=== PATIENT | male | born 1990 | race Caucasian/White ===

== ENCOUNTER 2024-11-29 20:33 | Emergency (ER) | payer SELFPAY ==
[2024-11-29] MEDS ORDERED: ONDANSETRON 4 MG/2 ML VIAL ONE (21:41)
[2024-11-29] MEDS ORDERED: KETOROLAC 30 MG/ML INJ ONE (21:42)
[2024-11-29] MEDS ORDERED: MORPHINE 4 MG/ML SYR ONE (21:42)
[2024-11-29] MEDS ORDERED: FAMOTIDINE 20 MG/2 ML VIAL IV ONE (21:42)
[2024-11-29] MEDS ORDERED: NA CHLORIDE 0.9% 1,000 ML ONE (21:43)
--- NOTE | 2024-11-29 21:55 | RAD REPORT ---
EXAMINATION: ONE VIEW CHEST XR CLINICAL INDICATION: Male, 34 years old.,CHEST PAIN TECHNIQUE: Frontal chest projection is submitted. Examination is limited by patient positioning and t echnique. COMPARISON: No prior exam. FINDINGS: The lungs are well inflated and clear. No pneumothorax or sizable effusion. The heart is normal in s ize. Mediastinal contours are unremarkable. IMPRESSION: No acute intrathoracic abnormalities.
[2024-11-29 22:25] LABS: ALT/SGPT 30 U/L (16-61); Albumin 3.7 g/dL (3.4-5.0); Albumin/Globulin Ratio 1.1 (1.1-1.8); Alkaline Phosphatase 63 U/L (45-117); Anion Gap 6.9 mEq/L (5.0-15.0); BUN Blood Urea Nitrogen 14 mg/dL (7-18); Bicarbonate 30 mEq/L (21-32); Bilirubin Total 0.4 mg/dL (0.2-1.0); Globulin 3.4 g/dL (2.3-3.5); Glomerular Filtration Rate 132 ml/min (=/>90); Glucose Level 110 mg/dL (74-106); NT PRO-BNP 13 pg/mL (<125); Protein, Total 7.1 g/dL (6.4-8.2); Sodium Level 139 mEq/L (136-145); Troponin High Sensitivity 3.7 pg/mL (<58.9)
[2024-11-29 22:26] LABS: AST/SGOT 22 U/L (15-37); Bilirubin Direct < 0.2 mg/dL (0-0.2); Bilirubin Indirect, Calculated 0.2 mg/dL (0.2-0.8); Magnesium 2.2 mg/dL (1.6-2.4); Potassium 3.9 mEq/L (3.5-5.1)
[2024-11-29 22:30] LABS: Absolute Basophils 0.1 K/uL (0-0.5); Absolute Eosinophils 0.1 K/uL (0-0.5); Absolute Lymphocytes (CBC) 2.5 K/uL (0.7-4.9); Absolute Monocytes 0.6 K/uL (0.1-1.3); Absolute Neutrophil 4.4 K/uL (1.8-8.0); Basophils % 0.8 % (0-1.3); Eosinophils % 1.8 % (0-4.4); Hematocrit 41.6 % (39.6-49.0); Hemoglobin 14.1 g/dL (13.6-17.9); MCH 30.1 pg (27.0-35.0); MCV 88.3 fL (80-100); MPV 8.1 fL (7.6-11.3); Monocytes % 7.9 % (3.3-12.3); Neutrophils % 56.5 % (41.7-73.7); Nucleated Red Blood Cells % 0.2 % (0-0); PT Prothrombin Time 10.5 SECONDS (10-13.0); Platelets 270 thou/uL (152-406); Protime INR 0.92; Red Cell Distribution Width 13.6 % (12.1-15.2)
[2024-11-30] MEDS ORDERED: PROMETHAZINE 25 MG TABLET ONE (00:51)
[2024-11-30] MEDS ORDERED: BENZONATATE 100 MG CAP PO ONE (00:52)
[2024-11-30] MEDS ORDERED: GUAIFENESIN/DM 5 ML UCUP ONE (00:52)
--- NOTE | 2024-11-30 00:57 | EDPHYS ---
Physician Documentation [facility] Name: Oni Tobin III Age: 34 yrs Sex: Male : 1990 Arrival Date: 11/29/2024 Time: 20:33 Bed 19 Private MD: ED Physician Anuj Flowers HPI: 11/29 20:37 This 34 yrs old Male presents to ER via Unassigned with complaints of Chest sp4 Pain, Shortness Of Breath. 21:27 34-year-old male presents with persistent cough and chest pain. Patient reports 3 sp4 nights ago he vomited in his sleep and since then developed left-sided pressure type chest pain which is 9 out of 10 on a scale associated with persistent cough feeling of fluid in the chest. Patient reports he has history of gastric sleeve surgery in 2021 he also has history of GERD he takes omeprazole 40 mg p.o. daily. History of prediabetes, allergy to penicillin, erythromycin, metformin, amoxicillin, sulfa drugs, doxycycline, and Chantix. Historical: - Allergies: 20:43 PENICILLINS; bm8 20:43 Amoxicillin; bm8 20:43 erythromycin; bm8 20:43 metformin; bm8 20:43 Sulfa (Sulfonamide Antibiotics); bm8 20:43 Doxycycline; bm8 20:43 Chantix; bm8 - Home Meds: 20:43 None [Active]; bm8 - PMHx: 20:43 gastric sleeve; bm8 - Immunization history:: Adult Immunizations up to date. - Infectious Disease History:: Denies. - Social history:: Smoking status: Patient denies any tobacco usage or history of. - Family history:: not pertinent. ROS: 21:36 Constitutional: Negative for fever, chills, and weight loss, sp4 21:36 All other systems are negative, Exam: 21:36 Constitutional: This is a well developed, well nourished patient who is awake, alert, sp4 and in no acute distress. Head/Face: Normocephalic, atraumatic. Eyes: Pupils equal round and reactive to light, extra-ocular motions intact. Lids and lashes normal. Conjunctiva and sclera are not injected. Cornea within normal limits. Periorbital areas with no swelling, redness, or edema. ENT: Nares patent. No nasal discharge, no septal abnormalities noted. Tympanic membranes are normal and external auditory canals are clear. Oropharynx with no redness, swelling, or masses, exudates, or evidence of obstruction, uvula midline. Mucous membranes moist. Neck: Trachea midline, no thyromegaly or masses palpated, and no cervical lymphadenopathy. Supple, full range of motion without nuchal rigidity, or vertebral point tenderness. Chest/axilla: Normal chest wall appearance and motion. Nontender with no deformity. No lesions are appreciated. Cardiovascular: Regular rate and rhythm with a normal S1 and S2. No gallops, murmurs, or rubs. Normal PMI, no JVD. No pulse deficits. Respiratory: Lungs have equal breath sounds bilaterally, clear to auscultation and percussion. No rales, rhonchi or wheezes noted. No increased work of breathing, no retractions or nasal flaring. Abdomen/GI: Soft, with normal bowel sounds. No distension or tympany. No guarding or rebound. No evidence of tenderness throughout. Back: No spinal tenderness. No costovertebral tenderness. Skin: Warm, dry with normal turgor. Normal color with no rashes, no lesions, and no evidence of cellulitis. MS/ Extremity: Pulses equal, no cyanosis. Neurovascular intact. Full, normal range of motion. Neuro: Awake and alert, GCS 15, oriented to person, place, time, and situation. Cranial nerves II-XII grossly intact. Motor strength 5/5 in all extremities. Sensory grossly intact. Psych: Awake, alert, with orientation to person, place and time. Behavior, mood, and affect are within normal limits 21:36 ECG was reviewed by the Attending Physician. EKG 2130 normal sinus rhythm rate 74 normal EKG Vital Signs: 20:42 BP 144 / 93; Pulse 80; Resp 18; Temp 98.6; Pulse Ox 100% ; Weight 90.72 kg; Height 5 bm8 ft. 8 in. ; Pain 9/10; 21:56 BP 143 / 69; Pulse 92; Resp 20; Pulse Ox 100% on R/A; kj2 23:00 BP 142 / 68; Pulse 88; Resp 20; Pulse Ox 100% on R/A; kj2 23:41 BP 138 / 70; Pulse 82; Resp 18; Pulse Ox 100% on R/A; kj2 04/10 01:09 BP 130 / 87; Pulse 74; Resp 18; Temp 98.6; Pulse Ox 98% ; Pain 0/10; bm8 11/29 20:42 Body Mass Index 30.41 (90.72 kg, 172.72 cm) bm8 11/29 20:42 Pain Scale: Adult bm8 11/30 01:09 Pain Scale: Adult bm8 [place] Coma Score: 11/29 21:36 Eye Response: spontaneous(4). Motor Response: obeys commands(6). Verbal Response: sp4 oriented(5). Total: 15. 11/30 00:17 Eye Response: spontaneous(4). Motor Response: obeys commands(6). Verbal Response: bm8 oriented(5). Total: 15. 01:09 Eye Response: spontaneous(4). Motor Response: obeys commands(6). Verbal Response: bm8 oriented(5). Total: 15. MDM: 11/29 20:38 Medical Screening Exam initiated sp4 11/30 00:17 ED course: CLINICAL HISTORY: Eval for aspiration pneumonia. COMPARISON: None. sp4 TECHNIQUE: CT CHEST WITH IV CONTRAST on 11/29/2024 9:23 PM CDT. MIPS reconstructions were generated. This exam was performed according to our departmental dose-optimization program, which includes automated exposure control, adjustment of the mA and/or kV according to patient size and/or use of iterative reconstruction technique. MIP images were generated. FINDINGS: Thoracic aorta is normal in course and caliber without aneurysm or dissection. Pulmonary arteries are adequately opacified without acute or chronic filling defects. The heart is normal in size. There is no pericardial effusion. Intrathoracic lymph nodes are not enlarged. Bilateral gynecomastia is present. There is no pleural effusion, pleural thickening or pneumothorax. Central airways are patent. Lungs are clear with no consolidation, mass or interstitial lung disease. There are no acute abnormalities within the limited images of the upper abdomen. There are no acute osseous findings. No suspicious bony lesions. IMPRESSION: No aortic dissection or aneurysm. No pulmonary embolus. No pneumonia. Electronically signed by: Gregory Mccollum MD 11/29/2024 11:51 PM CDT . 01:04 Differential diagnosis: acute pericarditis, anxiety, coronary artery disease chest wall sp4 pain, esophagitis, gastritis. HEART Score: History: Slightly Suspicious (0), ECG: Normal (0), Age: < or = 45 years (0), Risk Factors: No Risk Factors Known (0), Troponin: < or = 1 x Normal Limit (0), Total Score = 0. Data reviewed: vital signs, nurses notes, lab test result(s), EKG, radiologic studies. Consideration of Admission/Observation Escalation of care including admission/observation considered. ED course: CT revealed - IMPRESSION: No aortic dissection or aneurysm. No pulmonary embolus. No pneumonia. Electronically signed by: Gregory Mccollum MD 11/29/2024 11:51 PM. 11/29 20:38 Order name: Basic Metabolic Panel; Complete Time: 22:40 sp4 11/29 20:38 Order name: CBC with Diff; Complete Time: 22:40 sp4 11/29 20:38 Order name: LFT's; Complete Time: 22:40 sp4 11/29 20:38 Order name: Magnesium; Complete Time: 22:40 sp4 11/29 20:38 Order name: NT PRO-BNP; Complete Time: 22:40 sp4 11/29 20:38 Order name: PT-INR; Complete Time: 22:40 sp4 11/29 20:38 Order name: Troponin HS; Complete Time: 22:40 sp4 11/29 23:50 Order name: Troponin High Sensitivity; Complete Time: 00:54 sp4 11/29 20:38 Order name: XRAY Chest (1 view); Complete Time: 22:40 sp4 11/29 21:23 Order name: CT Chest W/ Con sp4 11/29 20:38 Order name: Cardiac monitoring; Complete Time: 21:52 sp4 11/29 20:38 Order name: EKG - Nurse/Tech; Complete Time: 21:52 sp4 11/29 20:38 Order name: IV Saline Lock; Complete Time: 21:52 sp4 11/29 20:38 Order name: Labs collected and sent; Complete Time: 21:52 sp4 11/29 20:38 Order name: O2 Per Protocol; Complete Time: 21:52 sp4 11/29 20:38 Order name: O2 Sat Monitoring; Complete Time: 21:52 sp4 EC/09 21:30 Rate is 74 beats/min. Rhythm is regular, Normal Sinus Rhythm. QRS [place] is Normal. [place] sp4 interval is normal. QRS interval is normal. QT interval is normal. No Q waves. T waves are Normal. No ST changes noted. Clinical impression: Normal ECG. Interpreted by me. Reviewed by me. Administered Medications: 21:54 Drug: Ondansetron IVP 4 mg IVP once; over 2 minutes Route: IVP; Site: left antecubital; kj2 11/30 00:19 Follow up: Response: No adverse reaction bm8 11/29 21:54 Drug: NS 0.9% IV 1000 ml IV at 1000 ml once; to be given as a bolus over 60 minutes kj2 Route: IV; Rate: 1000 ml; Site: left antecubital; 11/30 01:10 Follow up: Response: No adverse reaction; IV Status: Completed infusion bm8 11/29 21:54 Drug: Famotidine IVP 20 mg IVP once; dilute with 10 mL 0.9% NaCl; give over 2 minutes kj2 Route: IVP; Site: left antecubital; 11/30 00:19 Follow up: Response: No adverse reaction bm8 11/29 21:55 Drug: Ketorolac IVP 30 mg IVP once Route: IVP; Site: left antecubital; kj2 11/30 00:19 Follow up: Response: No adverse reaction bm8 11/29 21:55 Drug: morphine IVP or IV 4 mg IVP once over 4 mins Route: IVP; Infused Over: 4 mins; kj2 Site: left antecubital; 11/30 00:19 Follow up: Response: No adverse reaction bm8 00:56 Drug: Dextromethorphan-Guaifenesin PO Liquid 10 mg-100 mg/5 mL 20 ml PO once Route: PO; bm8 01:10 Follow up: Response: No adverse reaction bm8 00:56 Drug: Tessalon Perle PO 200 mg PO once Route: PO; bm8 01:10 Follow up: Response: No adverse reaction bm8 00:56 Drug: Promethazine PO 25 mg PO once Route: PO; bm8 01:10 Follow up: Response: No adverse reaction bm8 Disposition Summary: 11/30/24 00:56 Discharge Ordered Notes: Location: Home sp4 Problem: new sp4 Symptoms: have improved sp4 Condition: Stable sp4 Diagnosis - Acute nausea vomiting, acute noncardiac chest pain, acute bronchitis sp4 Followup: sp4 - With: Private Physician - When: 7 - 10 days - Reason: Recheck today's complaints Discharge Instructions: - Discharge Summary Sheet sp4 - Clear Liquid Diet, Adult, Wpzy-py-Fibr sp4 Forms: - Patient Portal Instructions sp4 Prescriptions: - dextromethorphan-guaifenesin 20-400 mg Oral tablet - take 1 tablet ORAL route every 6 hours PRN pain; 60 tablet; Refills: 0, Product sp4 Selection Permitted - promethazine 25 mg Oral tablet - take 1 tablet ORAL route every 6 hours As needed PRN nausea; 30 tablet; sp4 Refills: 0, Product Selection Permitted Signatures: Dispatcher [employer] EDAnuj Warner MD MD sp4 Fortino Quach RN RN bm8 Heena Winn, RN RN kj2 Corrections: (The following items were deleted from the chart) 11/29 20:38 20:38 BASIC METABOLIC PANEL+C.LAB.BRZ ordered. EDMS EDMS 20:38 20:38 CBC+H.LAB.BRZ ordered. EDMS EDMS 20:38 20:38 HEPATIC FUNCTION+C.LAB.BRZ ordered. EDMS EDMS 20:38 20:38 MAGNESIUM+C.LAB.BRZ ordered. EDMS EDMS 20:38 20:38 PROBNP+C.LAB.BRZ ordered. EDMS EDMS 20:38 20:38 PROTIME (+INR)+COAG.LAB.BRZ ordered. EDMS EDMS 20:38 20:38 Troponin High Sensitivity+C.LAB.BRZ ordered. EDMS EDMS 20:38 20:38 Chest Single View+RAD.RAD.BRZ ordered. EDMS EDMS 20:45 20:43 Allergies: No Known Allergies; bm8 bm8 20:45 20:43 PMHx: None; bm8 bm8
--- NOTE | 2024-11-30 00:57 | ER ---
Nurse's Notes [facility] Name: Oni Tobin III Age: 34 yrs Sex: Male : 1990 Arrival Date: 11/29/2024 Time: 20:33 Bed 19 Private MD: Diagnosis: Acute nausea vomiting, acute noncardiac chest pain, acute bronchitis Presentation: 11/29 20:42 Chief complaint: Patient states: a burning chest pain with n/v for three days. bm8 Coronavirus screen: At this time, the client does not indicate any symptoms associated with coronavirus-19. Ebola Screen: Patient negative for fever greater than or equal to 101.5 degrees Fahrenheit, and additional compatible Ebola Virus Disease symptoms Patient denies exposure to infectious person. Patient denies travel to an Ebola-affected area in the 21 days before illness onset. No symptoms or risks identified at this time. Initial Sepsis Screen: Does the patient meet any 2 criteria? No. Patient's initial sepsis screen is negative. Does the patient have a suspected source of infection? No. Patient's initial sepsis screen is negative. Risk Assessment: Do you want to hurt yourself or someone else? Patient reports no desire to harm self or others. Onset of symptoms was November 26, 2024. 20:42 Method Of Arrival: Ambulatory bm8 20:42 Acuity: SINA 3 bm8 Triage Assessment: 20:43 General: Appears in no apparent distress. uncomfortable, Behavior is calm, cooperative, bm8 appropriate for age. Pain: Complains of pain in right upper quadrant, left upper quadrant, right lower quadrant and left lower quadrant Pain currently is 9 out of 10 on a pain scale. Cardiovascular: Reports chest pain, Heart tones S1 S2 present Capillary refill < 3 seconds in bilateral fingers toes Patient's skin is warm and dry. Respiratory: Airway is patent Respiratory effort is even, unlabored, Respiratory pattern is regular, symmetrical, Breath sounds are clear bilaterally. GI: Abdomen is flat, Bowel sounds present X 4 quads. Reports indigestion. Historical: - Allergies: 20:43 PENICILLINS; bm8 20:43 Amoxicillin; bm8 20:43 erythromycin; bm8 20:43 metformin; bm8 20:43 Sulfa (Sulfonamide Antibiotics); bm8 20:43 Doxycycline; bm8 20:43 Chantix; bm8 - Home Meds: 20:43 None [Active]; bm8 - PMHx: 20:43 gastric sleeve; bm8 - Immunization history:: Adult Immunizations up to date. - Infectious Disease History:: Denies. - Social history:: Smoking status: Patient denies any tobacco usage or history of. - Family history:: not pertinent. Screenin:[facility] ED Fall Risk Assessment (Adult) History of falling in the last 3 months, kj2 including since admission No falls in past 3 months (0 pts) Confusion or Disorientation Intoxicated or Sedated No (0 pts) Impaired Gait No (0 pts) Mobility Assist Device Used No (0 pt) Altered Elimination No (0 pt) Score/Fall Risk Level 0 - 2 = Low Risk Maintained a safe environment, Hourly rounding (assess needs \T\ fall precautionary measures) done. Abuse screen: Denies threats or abuse. Denies injuries from another. Nutritional screening: No deficits noted. Tuberculosis screening: No symptoms or risk factors identified. Assessment: 21:00 General: Appears in no apparent distress. Behavior is calm, cooperative. Pain: kj2 Complains of pain in abdomen and left lower quadrant and right lower quadrant and left upper quadrant and right upper quadrant Pain does not radiate. Pain currently is 6 out of 10 on a pain scale. Pain began 2-3 days ago. Neuro: Level of Consciousness is awake, alert, obeys commands, Oriented to person, place, time, situation. Cardiovascular: Reports chest pain, Patient's skin is warm and dry. Respiratory: Reports shortness of breath Airway is patent Respiratory effort is unlabored. GI: No signs and/or symptoms were reported involving the gastrointestinal system. : No signs and/or symptoms were reported regarding the genitourinary system. 21:57 Reassessment: Patient appears in no apparent distress at this time. Patient and/or kj2 family updated on plan of care and expected duration. Pain level reassessed. Patient is alert, oriented x 3, equal unlabored respirations, skin warm/dry/pink. 23:00 Reassessment: Patient appears in no apparent distress at this time. Patient and/or kj2 family updated on plan of care and expected duration. Pain level reassessed. Patient is alert, oriented x 3, equal unlabored respirations, skin warm/dry/pink. 23:41 Reassessment: Patient appears in no apparent distress at this time. Patient and/or kj2 family updated on plan of care and expected duration. Pain level reassessed. Patient is alert, oriented x 3, equal unlabored respirations, skin warm/dry/pink. 11/30 00:17 Reassessment: Patient appears in no apparent distress at this time. Patient and/or bm8 family updated on plan of care and expected duration. Pain level reassessed. Patient is alert, oriented x 3, equal unlabored respirations, skin warm/dry/pink. Patient states feeling better. Patient states symptoms have improved. Pain: Pain currently is 3 out of 10 on a pain scale. Cardiovascular: Reports chest pain, Capillary refill < 3 seconds in bilateral fingers Patient's skin is warm and dry. 01:09 Reassessment: Patient appears in no apparent distress at this time. Patient and/or bm8 family updated on plan of care and expected duration. Pain level reassessed. Patient is alert, oriented x 3, equal unlabored respirations, skin warm/dry/pink. Patient denies pain at this time. Patient states feeling better. Patient states symptoms have improved. Vital Signs: 11/29 20:42 BP 144 / 93; Pulse 80; Resp 18; Temp 98.6; Pulse Ox 100% ; Weight 90.72 kg; Height 5 bm8 ft. 8 in. ; Pain 9/10; 21:56 BP 143 / 69; Pulse 92; Resp 20; Pulse Ox 100% on R/A; kj2 23:00 BP 142 / 68; Pulse 88; Resp 20; Pulse Ox 100% on R/A; kj2 23:41 BP 138 / 70; Pulse 82; Resp 18; Pulse Ox 100% on R/A; kj2 11/30 01:09 BP 130 / 87; Pulse 74; Resp 18; Temp 98.6; Pulse Ox 98% ; Pain 0/10; bm8 11/29 20:42 Body Mass Index 30.41 (90.72 kg, 172.72 cm) 8 11/29 20:42 Pain Scale: Adult bm8 11/30 01:09 Pain Scale: Adult bm8 [place] Coma Score: 11/29 21:36 Eye Response: spontaneous(4). Motor Response: obeys commands(6). Verbal Response: sp4 oriented(5). Total: 15. 04/10 00:17 Eye Response: spontaneous(4). Motor Response: obeys commands(6). Verbal Response: bm8 oriented(5). Total: 15. 01:09 Eye Response: spontaneous(4). Motor Response: obeys commands(6). Verbal Response: bm8 oriented(5). Total: 15. ED Course: 11/29 20:35 Patient arrived in ED. im 20:37 Anuj Flowers MD is Attending Physician. sp4 20:43 Triage completed. bm8 20:43 Arm band placed on left wrist. bm8 21:00 Patient has correct armband on for positive identification. Bed in low position. Call kj2 light in reach. Provided Education on: call light. 21:17 XRAY Chest (1 view) In Process Unspecified. EDMS 21:35 Heena Winn RN is Primary Nurse. kj2 21:52 Inserted saline lock: 20 gauge in left antecubital area, using aseptic technique. Blood rk3 collected. Flushed with 10 mL NS. 22:00 Client placed on continuous cardiac and pulse oximetry monitoring. NIBP monitoring kj2 applied. shelter monitor on. Pulse ox on. 22:00 No provider procedures requiring assistance completed. Patient maintains SpO2 kj2 saturation greater than 95% on room air. 22:47 CT Chest W/ Con In Process Unspecified. EDMS 11/30 00:08 Report given to KITTY Freitas. kj2 01:09 IV discontinued, intact, bleeding controlled, No redness/swelling at site. Pressure bm8 dressing applied. Administered Medications: 11/29 21:54 Drug: Ondansetron IVP 4 mg IVP once; over 2 minutes Route: IVP; Site: left antecubital; kj2 11/30 00:19 Follow up: Response: No adverse reaction bm8 11/29 21:54 Drug: NS 0.9% IV 1000 ml IV at 1000 ml once; to be given as a bolus over 60 minutes kj2 Route: IV; Rate: 1000 ml; Site: left antecubital; 11/30 01:10 Follow up: Response: No adverse reaction; IV Status: Completed infusion bm8 11/29 21:54 Drug: Famotidine IVP 20 mg IVP once; dilute with 10 mL 0.9% NaCl; give over 2 minutes kj2 Route: IVP; Site: left antecubital; 11/30 00:19 Follow up: Response: No adverse reaction bm8 11/29 21:55 Drug: Ketorolac IVP 30 mg IVP once Route: IVP; Site: left antecubital; kj2 11/30 00:19 Follow up: Response: No adverse reaction bm8 11/29 21:55 Drug: morphine IVP or IV 4 mg IVP once over 4 mins Route: IVP; Infused Over: 4 mins; kj2 Site: left antecubital; 11/30 00:19 Follow up: Response: No adverse reaction bm8 00:56 Drug: Dextromethorphan-Guaifenesin PO Liquid 10 mg-100 mg/5 mL 20 ml PO once Route: PO; bm8 01:10 Follow up: Response: No adverse reaction bm8 00:56 Drug: Tessalon Perle PO 200 mg PO once Route: PO; bm8 01:10 Follow up: Response: No adverse reaction bm8 00:56 Drug: Promethazine PO 25 mg PO once Route: PO; bm8 01:10 Follow up: Response: No adverse reaction bm8 Medication: 11/29 21:59 VIS not applicable for this client. kj2 Outcome: 11/30 00:56 Discharge ordered by . sp4 01:09 Discharged to home ambulatory, with family, bm8 : Condition: stable 01:09 Discharge instructions given to patient, family, Instructed on discharge instructions, follow up and referral plans. no drinking with medication, no driving heavy equipment, medication usage, safety practices, Demonstrated understanding of instructions, follow-up care, medications, Prescriptions given X 2, 01:11 Patient left the ED. bm8 Signatures: Dispatcher [employer] EDMS Anuj Flowers MD MD sp4 Taya Cooper Brad RN RN bm8 Heena Winn RN RN kj2 Adriana Hearn rk3 Corrections: (The following items were deleted from the chart) 11/29 20:45 20:43 Allergies: No Known Allergies; bm8 8 20:45 20:43 PMHx: None; bm8 bm8
--- NOTE | 2024-11-30 01:15 | RAD REPORT ---
CLINICAL HISTORY: Eval for aspiration pneumonia. COMPARISON: None. TECHNIQUE: CT CHEST WITH IV CONTRAST on 11/29/2024 9:23 PM CDT. MIPS reconstructions were generated. This exam was performed according to our departmental dose-optimization program, which includes autom ated exposure control, adjustment of the mA and/or kV according to patient size and/or use of iterative reconstruction technique. MIP images were generated. FINDINGS: Thoracic aorta is normal in course and caliber without aneurysm or dissection. Pulmonary arteries are adequately opacified without acute or chronic filling defects. The heart is normal in size. There is no pericardial effusion. Intrathoracic lymph nodes are not enla rged. Bilateral gynecomastia is present. There is no pleural effusion, pleural thickening or pneumothorax. Central airways are patent. Lungs a re clear with no consolidation, mass or interstitial lung disease. There are no acute abnormalities within the limited images of the upper abdomen. There are no acute osseous findings. No suspicious bony lesions. IMPRESSION: No aortic dissection or aneurysm. No pulmonary embolus. No pneumonia. Electronically signed by: Gregory Mccollum MD 11/29/2024 11:51 PM CDT RP Due to temporary technical issues with the PACS/[facility] reporting system, reports are being roberta d by the in-house radiologist without review as a courtesy to ensure prompt reporting the interpreting radiologist is fully responsible for the content of the report. Transcribed Date/Time: 11/30/2024 1:14 AM
[2024-11-30 01:21] VITALS: TEMP 98.6
[2024-11-30 01:28] VITALS: BP 130/87; O2SAT 98
--- NOTE | 2024-11-30 11:46 | EKG ---
Test Date: 2024-11-29 Test Time: 21:30:02 Stage Electrician: DAVID MEASUREMENT RESULTS: Intervals: Rate: 74 ND: 146 QRSD: 90 QT: 370 QTc: 410 [place]: P: 64 ND: 146 QRS: 51 T: 66 INTERPRETIVE STATEMENTS: Normal sinus rhythm Normal ECG No previous ECG available for comparison Electronically Signed On 11-30-24 11:45:19 CDT by Michael Nieves
== END 2024-11-30 01:11 | disposition home or self-care (01) ==
LOC: ER 20:33
DX: J20.9 Acute bronchitis, unspecified (principal); R11.2 Nausea with vomiting, unspecified; Z98.84 Bariatric surgery status
CPT/HCPCS: 36415; 71045; 71260; 80048; 80076; 83735; 83880; 84484; 85025; 85610; 93005; 96361; 96374; 96375; 99285; J2405; J7030; Q0169; Q9967